=== PATIENT | male | born 1985 | race Caucasian/White ===

== ENCOUNTER 2022-09-29 06:30 | Day surgery (SDC) | payer MEDICAID ==
[~2022-09-29] VITALS: Ht 180.3 cm; Wt 158.8 kg
[2022-09-29] MEDS ORDERED: MEPERIDINE HCL/PF 25 MG/ML DISP.SYRIN ONE ×2 (07:22→07:25)
[2022-09-29] MEDS: fentaNYL CITRATE/PF 100 MCG/2 ML AMP ONE ×2 (08:13→08:16)
[2022-09-29] MEDS: MIDAZOLAM HCL 5 MG/5 ML VIAL ONE ×2 (08:13→08:16)
[2022-09-29] MEDS ORDERED: BENZOCAINE 20% 0.5mL UD SPRAY MM ONE (08:14)
[2022-09-29] MEDS ORDERED: DIPHENHYDRAMINE INJ 50 MG/ML VIAL ONE (08:20)
[2022-09-29 09:47] VITALS: BP_SYST 120
== END 2022-09-29 09:15 | disposition home or self-care (01) ==
LOC: SDS 06:30 → SMU 06:31 → SDS 09:15
PROVIDERS: ATTEND Internal Medicine Gastroenterology
DX: R10.13 Epigastric pain (principal); K29.50 Unspecified chronic gastritis without bleeding; K21.9 Gastro-esophageal reflux disease without esophagitis; Z79.899 Other long term (current) drug therapy; Z98.84 Bariatric surgery status; Z20.822 Contact with and (suspected) exposure to COVID-19
CPT/HCPCS: 36415 ×2; 43239; 87426; 88305; 88312; 88313; 99152; U0003; G0378; J1200; J2250; J3010; J2175